=== PATIENT | female | born 1980 | race American Indian/Alaskan Native ===

== ENCOUNTER 2016-06-02 12:27 | Emergency (ER) | payer MEDICAID, OTHER ==
[2016-06-02 12:27] VITALS: BMI 23.5
[2016-06-02 12:39] VITALS: BP 131/89; PULSE 99; RESP 18; TEMP 98.2; O2SAT 97
--- NOTE | 2016-06-02 12:53 | ED PDOC ---
Arrival/HPI - General Chief Complaint: Abnormal Skin Integrity Time Seen by Provider: 06/02/16 12:48 Historian: Patient - History of Present Illness Narrative History of Present Illness (Text): 06/02/16 14:18 Patient states that yesterday afternoon she "had my eyebrows waxed". She states that after procedure she started to develop irritation on both eyebrows with increased pain and redness this morning. She reports "crust" on her eyebrows earlier this AM. She states that she has had her eyebrows waxed in the past but this was a new facility she went to. She denies prior adverse effect to eyebrow waxing. She states that she does not know what exact material they used yesterday. Denies lip or tongue swelling. Denies headache or fever. Currently no drainage. Denies visual symptoms. Denies pain with eye movements. Symptom Onset: Gradual Past Medical History - Past History Past History: No Previous - Infectious Disease Hx of Infectious Diseases: None - Tetanus Immunization Tetanus Immunization: Unknown - Psychiatric Hx Substance Use: No - Surgical History Hx Section: Yes Other/Comment: hernia - Anesthesia Hx Anesthesia Reactions: No Hx Malignant Hyperthermia: No Family/Social History Family/Social History: Unknown Family HX Smoking Status: Heavy Smoker > 10 Cigarettes Daily Hx Alcohol Use: Yes Frequency of alcohol use: Socially Hx Substance Use: No Allergies/Home Meds Allergies/Adverse Reactions: Allergies Falls And Derivatives Allergy (Verified 06/02/16 12:39) ANAPHYLAXIS Review of Systems - Review of Systems Constitutional: absent: Fevers Eyes: absent: Vision Changes, Photophobia, Eye Pain ENT: absent: Voice Changes, Sore Throat, Rhinorrhea, Sinus Congestion Respiratory: absent: SOB, Cough, Wheezing Gastrointestinal: absent: Nausea Musculoskeletal: absent: Neck Pain Skin: Rash Hemo/Lymphatic: absent: Easy Bleeding Physical Exam Vital Signs Reviewed: Yes Vital Signs Temp Pulse Resp BP Pulse Ox 06/02/16 12:34 98.2 F 99 H 18 131/89 97 Temperature: Afebrile Appearance: Positive for: Uncomfortable Pain Distress: Mild - Systems Exam Head: Present: Atraumatic Pupils: Present: PERRL Extroacular Muscles: Present: EOMI, Other (no pain with eye movements) Conjunctiva: No: Injected Mouth: Present: Moist Mucous Membranes Pharnyx: No: ERYTHEMA Nose (Internal): Present: Normal Inspection Neck: Present: Normal Range of Motion. No: Meningeal Signs Respiratory/Chest: No: Respiratory Distress Neurological: Present: CN II-XII Intact, Motor Func Grossly Intact, Normal Sensory Function, Other (no facial droop. no ptosis) Skin: Present: Other (patient has mild erythema along bilateral eyebrows, mild edema medially, well circumscribed does not extend to orbits, NO DRAINAGE OR FLUCTANCE OR BLEEDING, no purulent or crusty drainage noted) Psychiatric: Present: Alert, Normal Insight, Normal Concentration Medical Decision Making ED Course and Treatment: 06/02/16 14:29 Patient on exam is nontoxic appearing, there is no fever, no wheezing, no angioedema, no lip or tongue swelling. Currently no abscess or blisters noted. No systemic symptoms noted. For risk of cellulitis, patient will be discharged with Bactrim, also will place on Hydrocortisone ointment for localized reaction. No orbital pain or pain with eye movements noted. 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 Disposition/Present on Arrival - Present on Arrival Any Indicators Present on Arrival: No History of DVT/PE: No History of Uncontrolled Diabetes: No Urinary Catheter: No History of Decub. Ulcer: No History Surgical Site Infection Following: None - Disposition Have Diagnosis and Disposition been Completed?: Yes Diagnosis: Allergic reaction Disposition: HOME/ ROUTINE Disposition Time: 12:49 Patient Plan: Discharge Condition: GOOD Additional Instructions: For any fever, any drainage/bleeding/pus, any increase in swelling or discomfort , any visual symptoms, any headaches, any pain with eye movements, any worsening of redness or swelling, any persistence of any symptoms, get rechecked. Take antibiotics as directed. Use hydrocortisone cream to affected area daily. Prescriptions: Sulfamethoxazole/Trimethoprim [Bactrim DS 800 mg-160 mg] 1 tab PO BID #14 tab Hydrocortisone 1% Oint [Cortizone 1% Oint] 1 unit TP DAILY #1 tube Referrals: Virgil Archer MD [Staff Provider] - Follow up with primary Forms: WORK NOTE
== END 2016-06-02 13:04 | disposition home or self-care (01) ==
LOC: ED 12:27
DX: T78.40XA Allergy, unspecified, initial encounter (principal); X58.XXXA Exposure to other specified factors, initial encounter; F17.210 Nicotine dependence, cigarettes, uncomplicated